=== PATIENT | female | born 2005 | race Hispanic/Latino ===

== ENCOUNTER 2023-03-14 22:29 | Emergency (ER) | payer SELFPAY ==
[2023-03-14 23:21] LABS: #Basophils 0.1 10x3/uL (0.0-0.2); #Eosinphils 0.1 10x3/uL (0.0-0.5); #Monocytes 0.7 10x3/uL (0.0-1.1); #Neutrophils 7.5 10x3/uL (1.5-8.4); %Basophils 0.7 % (0.0-2.0); %Eosinophils 0.8 % (0.0-6.0); %Lymphocytes 21.7 % (18.0-47.0); %Monocytes 6.2 % (0.0-10.0); %Neutrophils 70.3 % (40.0-75.0); Hematocrit 36.2 % (34.9-44.5); Hemoglobin 12.8 g/dL (12.0-15.5); Mean Corpuscular HGB CONC 35.4 g/dL (32.0-36.0); Mean Corpuscular Hemoglobin 30.7 pg (27.0-33.0); Mean Corpuscular Volume 86.8 fl (81.6-98.3); Mean Platelet Volume 9.5 fl (7.4-10.4); Platelet Count 438 10x3/uL (150-450); RBC Distribution Width 13.2 % (11.5-14.5); Red Blood Cell (RBC) Count 4.17 10x6/uL (3.90-5.03); White Blood Cell (WBC) Count 10.6 10x3/uL (3.5-10.5)
[2023-03-14 23:22] LABS: Bilirubin Neg (Negative); Blood, Urine 250 (Negative); Clarity Cloudy (Clear); Glucose, Urine (Dipstick) Normal (Negative); Ketone, Urine Negative (Negative); Leukocyte 500 (Negative); Nitrite Negative (Negative); Protein, Urine (Dipstick) 100 mg/dl (Neg-Trace); Urobilinogen Normal mg/dL (Less than 2)
[2023-03-14] MEDS ORDERED: Acetaminophen 500 MG TAB ONE (23:28)
[2023-03-14 23:32] LABS: Bacteria/HPF 1+ HPF (None Seen); CAUTI Indications for Culture Pelvic or flank pain; RBC/HPF 21-50 HPF (0-3); WBC/HPF Greater than 50 HPF (0-3)
[2023-03-14 23:33] LABS: BHCG - Serum Negative (NEGATIVE); Pregs Control Background? CLEAR/WHITE (CLR/WHITE); Pregs Control Bar Appear? YES (CONTROL BAR); Urine Culture Reflex Yes Yes
[2023-03-14] MEDS ORDERED: cefTRIAXone (ROCEPHIN) 1 GM VIAL ONE (23:35)
[2023-03-14 23:37] LABS: ALT (SGPT) 11 U/L (8-55); AST (SGOT) 14 U/L (5-30); Albumin 4.4 g/dL (3.5-5.0); Alkaline Phosphatase 100 U/L (40-100); Anion Gap 11 mmol/L (10-20); BUN (Urea Nitrogen) 15 mg/dL (8.4-21.0); Bilirubin, Total 0.7 mg/dL (0.2-1.2); Calc. Creatinine Clearance 0 mL/min (70-130); Calcium 8.9 mg/dL (7.8-10.44); Carbon Dioxide 24 mmol/L (22-29); Chloride 104 mmol/L (98-107); Estimated GFR 130; Globulin 3.2 g/dL (2.4-3.5); Glucose 111 mg/dL (70-105); Lipase 25 U/L (8-78); Potassium 3.4 mmol/L (3.5-5.1); Protein, Total 7.6 g/dL (6.0-8.3); Sodium 136 mmol/L (136-145)
== END 2023-03-15 00:52 | disposition home or self-care (01) ==
LOC: CSHERS 22:29
DX: N39.0 Urinary tract infection, site not specified (principal); Z75.3 Unavailability and inaccessibility of health-care facilities
CPT/HCPCS: 80053; 81001; 83690; 84703; 85025; 87077; 87086; 87186; 96374; J0696

== ENCOUNTER 2023-06-21 20:16 | Emergency (ER) | payer SELFPAY ==
[2023-06-21] MEDS ORDERED: Acetaminophen 500 MG TAB ONE (21:51)
[2023-06-21 22:10] LABS: #Basophils 0.04 10x3/uL (0.0-0.2); #Eosinphils 0.07 10x3/uL (0.0-0.5); #Monocytes 0.52 10x3/uL (0.0-1.1); %Basophils 0.4 % (0.0-2.0); %Eosinophils 0.7 % (0.0-6.0); %Lymphocytes 17.7 % (18.0-47.0); %Monocytes 5.5 % (0.0-10.0); %Neutrophils 75.5 % (40.0-75.0); Hematocrit 33.7 % (34.9-44.5); Hemoglobin 11.9 g/dL (12.0-15.5); Mean Corpuscular HGB CONC 35.3 g/dL (32.0-36.0); Mean Corpuscular Hemoglobin 30.3 pg (27.0-33.0); Mean Corpuscular Volume 85.8 fl (81.6-98.3); Mean Platelet Volume 9.2 fl (7.4-10.4); Platelet Count 367 10x3/uL (150-450); Red Blood Cell (RBC) Count 3.93 10x6/uL (3.90-5.03); White Blood Cell (WBC) Count 9.4 10x3/uL (3.5-10.5)
[2023-06-21 22:25] LABS: ALT (SGPT) 15 U/L (8-55); AST (SGOT) 18 U/L (5-30); Albumin 3.6 g/dL (3.5-5.0); Alkaline Phosphatase 59 U/L (40-100); Anion Gap 14 mmol/L (10-20); BUN (Urea Nitrogen) 10 mg/dL (8.4-21.0); Bilirubin, Total 0.7 mg/dL (0.2-1.2); Calc. Creatinine Clearance 0 mL/min (70-130); Calcium 9.3 mg/dL (7.8-10.44); Carbon Dioxide 20 mmol/L (22-29); Chloride 103 mmol/L (98-107); Estimated GFR 133; Globulin 3.5 g/dL (2.4-3.5); Glucose 97 mg/dL (70-105); Lipase 27 U/L (8-78); Potassium 3.6 mmol/L (3.5-5.1); Protein, Total 7.1 g/dL (6.0-8.3); Sodium 133 mmol/L (136-145)
[2023-06-21 22:33] LABS: Bilirubin Neg (Negative); Blood, Urine 50 (Negative); Clarity Cloudy (Clear); Glucose, Urine (Dipstick) Normal (Negative); Ketone, Urine Negative (Negative); Leukocyte 500 (Negative); Nitrite Negative (Negative); Protein, Urine (Dipstick) 30 mg/dl (Neg-Trace); Urobilinogen Normal mg/dL (Less than 2)
[2023-06-21 22:48] LABS: CAUTI Indications for Culture Pelvic or flank pain; RBC/HPF 0-3 HPF (0-3); WBC/HPF 21-50 HPF (0-3)
[2023-06-21 22:49] LABS: Bacteria/HPF 1+ HPF (None Seen); Urine Culture Reflex Yes Yes
[2023-06-21] MEDS ORDERED: cefTRIAXone (ROCEPHIN) 1 GM VIAL ONE (23:27)
[2023-06-21] MEDS ORDERED: Ondansetron PF 4 MG/2 ML Vial ONE (23:30)
[2023-06-22 16:27] LABS: Chlamydia by PCR, Vaginal Swab Not Detected (NotDetected); GC by PCR, Vaginal Swab Not Detected (NotDetected)
== END 2023-06-22 01:37 | disposition home or self-care (01) ==
LOC: CSHERS 20:16
DX: O44.01 Complete placenta previa NOS or without hemorrhage, first trimester (principal); O23.41 Unspecified infection of urinary tract in pregnancy, first trimester; N39.0 Urinary tract infection, site not specified; O23.591 Infection of other part of genital tract in pregnancy, first trimester; B96.89 Other specified bacterial agents as the cause of diseases classified elsewhere; Z3A.12 12 weeks gestation of pregnancy
CPT/HCPCS: 36415; 76856; 80053; 81001; 83690; 84702; 85025; 86900; 86901; 87077; 87086; 87186; 87480; 87491; 87510; 87591; 87660; 96365; 96375; J0696; J2405

== ENCOUNTER 2023-08-31 13:37 | Outpatient (CLI) | payer OTHER | END 2023-08-31 13:38 | disposition home or self-care (01) | LOC: CSHULT 13:37 | PROVIDERS: ATTEND Family Medicine | DX: O44.02 Complete placenta previa NOS or without hemorrhage, second trimester (principal); Z3A.22 22 weeks gestation of pregnancy | CPT/HCPCS: 76805 ==

== ENCOUNTER 2023-12-23 10:44 | Inpatient (IN) | payer MEDICAID, OTHER, SELFPAY ==
[2023-12-23] MEDS ORDERED: hydrALAZINE 20 MG/ML VIAL SLOW IVP PRN ×2 (11:20→21:51)
[2023-12-23] MEDS ORDERED: Ondansetron PF 4 MG/2 ML Vial IVP PRN ×2 (11:20→21:51)
[2023-12-23] MEDS ORDERED: Carboprost 250 MCG/ML AMP IM PRN (11:20)
[2023-12-23] MEDS ORDERED: Diphenoxylate HCl/Atropine Tablet PO PRN ×2 (11:20)
[2023-12-23] MEDS ORDERED: Oxytocin 30 units/NS 500 ML 500 ML IV SCH ×3 (11:20→21:51)
[2023-12-23] MEDS ORDERED: Tranexamic Acid 1,000 MG/10 ML VIAL IVP PRN (11:20)
[2023-12-23] MEDS ORDERED: Promethazine HCl 25 MG/ML VIAL IM PRN ×2 (11:20→21:51)
[2023-12-23] MEDS ORDERED: Misoprostol 100 MCG TAB VAG SCH (11:20)
[2023-12-23] MEDS ORDERED: Lidocaine 1% (PF) 30 ML VIAL SC PRN (11:20)
[2023-12-23] MEDS ORDERED: Lactated Ringer's 1,000 ML IV SCH (11:20)
[2023-12-23 11:37] LABS: Hematocrit 29.1 % (34.9-44.5); Hemoglobin 9.9 g/dL (12.0-15.5); Mean Corpuscular Hemoglobin 29.3 pg (27.0-33.0); Mean Corpuscular Volume 86.1 fL (81.6-98.3); Mean Platelet Volume 10.9 fL (7.4-10.4); Platelet Count 282 10x3/uL (150-450); RBC Distribution Width 13.1 % (11.5-14.5); Red Blood Cell (RBC) Count 3.38 10x6/uL (3.90-5.03); White Blood Cell (WBC) Count 8.1 10x3/uL (3.5-10.5)
[2023-12-23 11:49] VITALS: BMI 26.2
[2023-12-23] MEDS: Penicillin G Potassium 5 MILL.UNITS in Sodium Chloride 0.9% 100 ML IVPB SCH (11:55)
[2023-12-23 12:27] LABS: HBsAg Index 0.16 S/CO (0-0.99); Hep B Surf Ag - L&D Non-Reactive S/CO (NonReactive)
[2023-12-23 12:29] LABS: Syphilis Antibody Nonreactive (Nonreactive); Syphilis Antibody Index 0.03 S/CO (<1.00 Non-Reactive)
[2023-12-23] MEDS ORDERED: Penicillin G 2.5 MILL.units 2.5 MILL.UNITS in Premix 1 BAG IVPB SCH (15:00)
[2023-12-23] MEDS: Oxytocin 30 units/NS 500 ML 500 ML IV SCH (16:23)
[2023-12-23] MEDS: Ibuprofen 800 MG TAB PO PRN (18:30)
[2023-12-23] MEDS: Methylergonovine 0.2 MG/ML VIAL IM PRN (18:38)
[2023-12-23] MEDS: fentaNYL 50 mcg/mL 1 mL Vial SLOW IVP PRN (19:15)
[2023-12-23] MEDS: Misoprostol 200 MCG TAB PR PRN (19:16)
[2023-12-23] MEDS ORDERED: Milk Of Magnesia 30 ML UDCUP PO PRN (21:51)
[2023-12-23] MEDS ORDERED: Lanolin Ointment 7 GM TUBE TOP PRN (21:51)
[2023-12-23] MEDS ORDERED: Methylergonovine 0.2 MG/ML VIAL IM PRN (21:51)
[2023-12-23] MEDS ORDERED: diphenhydrAMINE 25 MG CAP PO PRN (21:51)
[2023-12-23] MEDS ORDERED: Preparation H Ointment 28 GM TUBE PR PRN (21:51)
[2023-12-23] MEDS ORDERED: Benzocaine-Menthol 82.5 ML CAN TOP PRN (21:51)
[2023-12-23] MEDS ORDERED: Bisacodyl 10 MG SUPP PR PRN (21:51)
[2023-12-23] MEDS: Boostrix 0.5 ML (Tdap) VIAL (>/=7 yrs of age) IM ONE (23:06)
[2023-12-23] MEDS: Docusate 100 MG CAP PO SCH (23:19)
[2023-12-23] MEDS: Acetaminophen 500 MG TAB PO PRN (23:19)
[2023-12-24] MEDS: Ibuprofen 800 MG TAB PO SCH (02:26)
[2023-12-24] MEDS: Docusate 100 MG CAP PO SCH (09:26)
[2023-12-24] MEDS: Prenatal Vitamin 1 TAB PO SCH (09:26)
[2023-12-24] MEDS: Ferrous Sulfate 325 MG TAB PO SCH (09:26)
[2023-12-25 08:01] VITALS: BP 103/55; TEMP 98.2
== END 2023-12-25 10:15 | disposition home or self-care (01) | DRG 806 ==
LOC: CSHLD 10:44 → CSHPP 22:10
PROVIDERS: ADMIT Family Medicine; ATTEND Family Medicine
PROC: 10E0XZZ Delivery of Products of Conception, External Approach (ICD-10-PCS; principal; 2023-12-23)
DX: O99.02 Anemia complicating childbirth (principal); O72.1 Other immediate postpartum hemorrhage; Z37.0 Single live birth; Z3A.38 38 weeks gestation of pregnancy; O99.824 Streptococcus B carrier state complicating childbirth
CPT/HCPCS: 36415; 85027; 86780; 86850; 86900; 86901; 87340; J2210; J2540; J2590; J3010